=== PATIENT | female | born 2000 | race Two or more races ===

== ENCOUNTER 2024-05-05 14:18 | Observation (INO) | payer MEDICAID, SELFPAY ==
[2024-05-05] VITALS (52 sets, daily range): BP systolic 109–121; BP diastolic 61–75; PULSE 75–114; RESP 18–99; TEMP 36.4–36.9; O2SAT 82–100; BMI 39.9
[2024-05-05] MEDS: NIFEdipine 10 MG CAPSULE PO ×2 (16:18→17:18)
[2024-05-05 16:44] LABS: Collection Type, Urine Clean Catch
[2024-05-05 16:45] LABS: Basophils % (Auto) 0 % (0-2.5); Eosinophils # (Auto) 0.1 Thou/mm3 (0.0-0.5); Eosinophils % (Auto) 1 % (0-10); Hematocrit 34.5 % (36.0-46.0); Hemoglobin 11.5 g/dL (12.0-16.0); Immature Granulocytes % (Auto) 1 % (0-0); Immature Granulocytes Auto 0.05 Thou/mm3 (0.00-0.00); Lymphocytes # (Auto) 2.2 Thou/mm3 (1.0-4.8); Lymphocytes % (Auto) 22 % (10-50); Mean Corpuscular HGB Conc 33.3 g/dl (31.0-37.0); Mean Corpuscular Hemoglobin 28.8 pg (25.0-35.0); Mean Corpuscular Volume 86 fL (80-100); Monocytes # (Auto) 0.6 Thou/mm3 (0.0-0.8); Monocytes % (Auto) 6 % (0-12); Neutrophils # (Auto) 7.2 Thou/mm3 (1.8-7.7); Neutrophils % (Auto) 71 % (37-80); Nucleated Red Blood Cell % 0 /100 WBC (0); Platelet Count 275 Thou/mm3 (140-440); RDW Standard Deviation 41.7 fL (36.4-46.3); White Blood Count 10.2 Thou/mm3 (3.6-11.0)
[2024-05-05 17:07] LABS: Bacteria,Urine Rare; Bilirubin,Urine Negative (Negative); Blood,Urine 1+ (Negative); Color,Urine Lt-Yellow (Lt Yel-Yel); Glucose, Urine Negative (Negative); Ketones,Urine Negative (Negative); Leukocyte Esterase,Urine Positive (Negative); Nitrite,Urine Negative (Negative); Protein,Urine Negative (Neg - Trace); RBC,Urine 1 /hpf (0-3); Specific Gravity,Urine 1.011 (1.001-1.035); Squamous Epithelial Cell,Urine 13 /hpf (0-5); Urobilinogen,Urine Negative mg/dL (0.0-1.0); WBC,Urine 12 /hpf (0-5)
[2024-05-05 17:08] LABS: Clarity,Urine Hazy (Clear/Hazy)
== END 2024-05-05 18:42 | disposition home or self-care (01) ==
PROVIDERS: Admitting Provider Obstetrics & Gynecology; Visit Provider Obstetrics & Gynecology
DX: O26.893 Other specified pregnancy related conditions, third trimester (principal); Z3A.32 32 weeks gestation of pregnancy; R10.30 Lower abdominal pain, unspecified
CPT/HCPCS: 36415; 59025; 59899; 81001; 82731; 85025; A9270

== ENCOUNTER 2024-05-11 17:33 | Observation (INO) | payer MEDICAID, SELFPAY ==
[2024-05-11 17:33] VITALS: BP 127/78; BP 128/78; PULSE 100; RESP 100; RESP 16; TEMP 36.2; O2SAT 100
--- NOTE | 2024-05-11 18:36 | XR_ITS ---
Examination: Biophysical profile, ultrasound Date and time of exam: May 11, 2024 1852 hours INDICATIONS: Decreased movement today Technique: Multiple transabdominal sonographic images of the pelvis abdomen obtained. Attention is directed to the breathing movement, gross body movement, amniotic fluid volume and tone. Findings: Amniotic fluid index 9.7 cm Total biophysical profile is 8 of 8. breathing movement is 2. Gross body movement is 2. tone is 2. Qualitative amniotic fluid volume is 2 Impression: Biophysical profile is 8 of 8.
[2024-05-11 18:55] VITALS: BMI 39.8
[2024-05-11 19:17] VITALS: BP 103/58; PULSE 78
== END 2024-05-11 20:10 | disposition home or self-care (01) ==
PROVIDERS: Admitting Provider Obstetrics & Gynecology; Visit Provider Obstetrics & Gynecology
DX: O36.8130 Decreased fetal movements, third trimester, not applicable or unspecified (principal); Z3A.33 33 weeks gestation of pregnancy
CPT/HCPCS: 59025; 59899; 76819; G0378

== ENCOUNTER 2024-06-13 13:22 | Outpatient (CLI) | payer MEDICAID, SELFPAY ==
[2024-06-13] VITALS (12 sets, daily range): BP systolic 109; BP diastolic 63; PULSE 83–108; O2SAT 97–100
== END 2024-06-13 14:16 | disposition home or self-care (01) ==
LOC: S4S1 13:23 → S4SX 13:23
PROVIDERS: Referring Provider Specialist; Visit Provider Specialist
DX: Z36.2 Encounter for other antenatal screening follow-up (principal); Z34.03 Encounter for supervision of normal first pregnancy, third trimester; Z3A.38 38 weeks gestation of pregnancy
CPT/HCPCS: 59025

== ENCOUNTER 2024-06-16 18:26 | Observation (INO) | payer MEDICAID, SELFPAY ==
[2024-06-16] VITALS (13 sets, daily range): BP systolic 134–140; BP diastolic 85–96; PULSE 77–118; RESP 18–99; TEMP 36.5–36.9; O2SAT 98–100; BMI 40.8
== END 2024-06-16 20:00 | disposition home or self-care (01) ==
PROVIDERS: Admitting Provider Obstetrics & Gynecology; Visit Provider Obstetrics & Gynecology
DX: O26.893 Other specified pregnancy related conditions, third trimester (principal); Z3A.38 38 weeks gestation of pregnancy; R10.9 Unspecified abdominal pain
CPT/HCPCS: 59025; 59899

== ENCOUNTER 2024-06-23 16:14 | Observation (INO) | payer MEDICAID, SELFPAY ==
[2024-06-23 16:24] VITALS: BP 136/85; PULSE 90
[2024-06-23 16:31] VITALS: BP 136/85; PULSE 90; RESP 16; RESP 98; TEMP 36.6; BMI 41.7
[2024-06-23 16:32] VITALS: RESP 16; TEMP 36.6; O2SAT 98
== END 2024-06-23 17:15 | disposition home or self-care (01) ==
PROVIDERS: Admitting Provider Specialist; Visit Provider Specialist
DX: Z34.03 Encounter for supervision of normal first pregnancy, third trimester (principal); Z3A.39 39 weeks gestation of pregnancy
CPT/HCPCS: 59025; 59899; G0378

== ENCOUNTER 2024-06-24 13:30 | Inpatient (IN) | payer MEDICAID, SELFPAY ==
[2024-06-24] VITALS (18 sets, daily range): BP systolic 115–137; BP diastolic 65–98; PULSE 86–115; RESP 17–98; TEMP 36.7–37.3; BMI 41.7; BMI 41.8
[2024-06-24 14:10] LABS: ROM Kit Lot # 57807112; ROM Swab Mixed By: GARCN1; Swb Mxed in Solvent 1 min? Yes
[2024-06-24 14:11] LABS: Rupture of Fetal Membranes Positive (Negative)
--- NOTE | 2024-06-24 14:33 | XR_ITS ---
Examination: age limited TECHNIQUE: Limited transabdominal sonographic images pelvis Date and time: June 24, 2024 1530 hours INDICATIONS: Ruptured membranes today, unknown estimated weight and unknown presentation. FINDINGS: Viable intrauterine gestation cephalic presentation Cardiac motion 166 bpm Estimated weight 3448 g Amniotic fluid index is 6.6 cm IMPRESSION: Viable intrauterine gestation cephalic presentation Estimated weight 3448 g
[2024-06-24 15:45] LABS: Basophils % (Auto) 0 % (0-2.5); Eosinophils # (Auto) 0.1 Thou/mm3 (0.0-0.5); Eosinophils % (Auto) 1 % (0-10); Hematocrit 33.5 % (36.0-46.0); Hemoglobin 11.6 g/dL (12.0-16.0); Immature Granulocytes % (Auto) 0 % (0-0); Immature Granulocytes Auto 0.04 Thou/mm3 (0.00-0.00); Lymphocytes # (Auto) 1.8 Thou/mm3 (1.0-4.8); Lymphocytes % (Auto) 18 % (10-50); Mean Corpuscular HGB Conc 34.6 g/dl (31.0-37.0); Mean Corpuscular Hemoglobin 28.6 pg (25.0-35.0); Mean Corpuscular Volume 83 fL (80-100); Monocytes # (Auto) 0.6 Thou/mm3 (0.0-0.8); Monocytes % (Auto) 6 % (0-12); Neutrophils # (Auto) 7.3 Thou/mm3 (1.8-7.7); Neutrophils % (Auto) 74 % (37-80); Nucleated Red Blood Cell % 0 /100 WBC (0); Platelet Count 245 Thou/mm3 (140-440); RDW Standard Deviation 43.5 fL (36.4-46.3); Red Blood Count 4.06 Miln/mm3 (4.00-5.20); White Blood Count 9.9 Thou/mm3 (3.6-11.0)
[2024-06-24 16:19] LABS: Syphilis Nonreactive (Nonreactive)
--- NOTE | 2024-06-24 17:50 | PD.LDHP ---
Documentation for date of: 06/24/24 OB Labor/Induct. HPI History of Present Illness Chief complaint: Ruptured membranes, 39-4/7 weeks . : 1 Para: 0 Term pregnancies: 0 pregnancies: 0 Living children: 0 History of Abortions: Spontaneous and Elective: 0 History of Vaginal deliveries: 0 History of sections: No History of : No Date of last menstrual period: 09/30/23 [place]: 06/27/24 Gestational Age (weeks): 39 Gestational Age (days): 4 Gestational age based on last menstrual period: 38 History of present illness: The patient is a 23-year-old G1, P0 at 39 4/7 weeks with an EDC of 06/27/2024 with all care uncomplicated with Dr. Blake at [facility] who presented with ruptured membranes to triage. She ruptured her membranes at noon on 06/24/2024. She was in triage approximately 1400 today. She was admitted at 1430. Cervix on presentation was 1 cm dilated group B strep is negative History of Present Dating criteria: LMP confirmed by 1st trimester US Adequate Care: Yes Ultrasounds: normal mid trimester US Obstetrical complications: none Medical complications: none Labs Maternal Blood Type: A Pos Labs: Negative: RPR, Hepatitis B, Rubella Titre (Rubella nonimmune), HIV, Chlamydia, Gonorrhea and Group Beta Strep and Unknown: Herpes Type 1, Herpes Type 2 and Covid-19 Past Medical History Surgical History SURGICAL: Negative Section Meds Home Medications and Allergies Home Medications ?Medication ?Instructions ?Recorded ?Confirmed ?Type vits no.130-ferrous fum 1 tab PO .Q DAY 05/05/24 06/23/24 History 27 mg iron-folic acid 800 mcg tablet ( Vitamin) aspirin 81 mg tablet,delayed 81 mg PO QDAY 06/23/24 06/23/24 History release Allergies Allergy/AdvReac Type Severity Reaction Status Date / Time No Known Allergies Allergy Verified 06/23/24 16:37 OB Exam Physical Exam Vital signs: Temp Pulse Resp BP 98.7 F 93 18 120/72 06/24/24 15:43 06/24/24 17:02 06/24/24 15:43 06/24/24 17:02 Detailed Labor and Delivery Exam Effacement (%): Thick Cervix position: posterior station: -2 Consistency: firm Presentation: Vertex Membranes: ruptured Amniotic fluid: clear Baseline heart rate: 140 monitor accelerations: 15x15 monitor decelerations: None terminal system operator variability: Moderate (11-25) OB Results Labs 06/24/24 15:15 Labs: Short CBC 06/24/24 Range/Units 15:15 WBC 9.9 (3.6-11.0) Thou/mm3 Hgb 11.6 L (12.0-16.0) g/dL Hct 33.5 L (36.0-46.0) % Plt Count 245 (140-440) Thou/mm3 OB Assessment & Plan Assessment and Plan (1) Full-term premature rupture of membranes: Status: Acute Assessment and plan: Admit patient. Order oral Cytotec for induction. EFW 7 and half pounds by ultrasound today. BRITT 6.6 vertex presentation (1) Full-term premature rupture of membranes Qualifiers: PROM onset of labor timing: onset of labor within 24 hours of rupture Qualified Code(s): O42.02 - Full-term premature rupture of membranes, onset of labor within 24 hours of rupture
[2024-06-24] MEDS: MISOPROSTOL 50 mCg TABLET PO (18:27)
[2024-06-24 21:33] LABS: Amphetamine/Metham Scrn,Ur OB Negative (Negative); Benzoylecgonine Screen, Ur OB Negative (Negative); Opiate Screen,Urine OB Negative (Negative); THC Screen,Urine OB Negative (Negative)
--- NOTE | 2024-06-24 22:47 | PC.NURSE ---
2243 RN at bedside position change semi fowlers, fhm adjusted
[2024-06-25] VITALS (98 sets, daily range): BP systolic 93–160; BP diastolic 51–94; PULSE 65–147; RESP 12–19; TEMP 36.4–37; O2SAT 88–100
--- NOTE | 2024-06-25 00:10 | PC.NURSE ---
0003 RN at bedside repositioned patient right lateral runners, m readjusted
[2024-06-25] MEDS: MISOPROSTOL 50 mCg TABLET PO ×2 (00:34→04:40)
--- NOTE | 2024-06-25 00:41 | PC.NURSE ---
0036 Rn at bedside position change left lateral, fhm adjusted
[2024-06-25] MEDS: RINGERS LACTATED 1000 ML 1,000 ML 100 ML IV ×3 (02:20→12:43)
[2024-06-25] MEDS: fentaNYL CIT INJ 50 mCg/ML AMP 2ML 100 MCG IV ×2 (03:37→05:34)
--- NOTE | 2024-06-25 05:17 | PC.NURSE ---
0507 RN at bedside assisting patient up to bathroom
--- NOTE | 2024-06-25 06:45 | PC.NURSE ---
[address] [facility] readjusted patient positioned to left lateral position, patient continues to breath through contractions, refuses epidural at this time
--- NOTE | 2024-06-25 08:11 | ESPR_ITS ---
Documentation for date of: 06/25/24 OB Labor Progress Note Pelvic Exam Dilation (cm): 3.5 Effacement (%): 60 station: -2 Contractions Monitor mode: Internal Contraction frequency: 1-4.5 Contraction pattern: Coupling Contraction intensity: Moderate Status status: Category ll Assessment and Plan Comments: 83-year-old 1 para 0 at 39 weeks and 5 days who received care at [facility]. Patient presented with rupture of membranes. She is currently being induced with misoprostol. Received signout from overnight on-call physician. Category 1 heart rate tracing. Continue current plan.
--- NOTE | 2024-06-25 08:25 | PC.NURSE ---
Ollie EASLEY at nurse's station reviewing tracing, aware pt to receive 4th Cytotec at 0840. Aware of minimal variability and no accels for about an hour
[2024-06-25] MEDS: FAMOTIDINE INJ 10 MG/ML VIAL 2 ML 20 MG IV (12:43)
[2024-06-25] MEDS: ceFAZolin/D5W 2 GM IV 2 GM/100 ML BAG IV (12:43)
[2024-06-25] MEDS: METOCLOPRAMIDE INJ 5 MG/ML VIAL 2 ML 10 MG IVP (12:43)
--- NOTE | 2024-06-25 12:43 | ESPR_ITS ---
Documentation for date of: 06/25/24 OB Labor Progress Note Pelvic Exam Dilation (cm): 5 Effacement (%): 90 station: 0 Contractions Monitor mode: Internal Contraction frequency: 2-5 Contraction pattern: Coupling Contraction intensity: Moderate Status status: Category ll Assessment and Plan Comments: Patient is being monitored for minimal variability and recurrent late deceler ations which intermittently resolved to category 1. Internal scalp electrode was placed but it was expanded. No change in cervical exam since 7 AM. Patient was offered the option to proceed with delivery, and the risks benefits and alternatives were discussed with her. Advantages and disadvantages of either option were reviewed. After being given the opportunity to ask questions she elected to proceed with delivery. All the questions were asked and answered to their apparent satisfaction
--- NOTE | 2024-06-25 13:46 | PD.GYNPROC ---
Operative Note - SERVICE DESK ASSOCIATE Procedure Date of procedure: 06/25/24 Procedure Performed: Primary low-transverse section by Pfannenstiel incision Indication: Category 2 heart rate tracing trending to category 3 Failure to progress in latent phase of labor Anesthesia type: Epidural Procedure description: Informed consent was obtained and the patient was taken to the operating room.? Identity was confirmed by double identifiers and she was placed on the operating table.? Spinal anesthesia was administered and she was positioned in the supine position.? The abdomen and perineum were prepped in the usual sterile fashion and a Yeung catheter was placed to continuous drainage.? Sterile drapes were applied.? The incision site was tested for adequacy of anesthesia.? A Pfannenstiel skin incision was made with a scalpel and carried to the subcutaneous fat up to the rectus fascia.? The rectus fascia was incised on either side of the midline and the incisions were extended bilaterally.? The fascia was gently dissected off the ventral surface of the rectus muscle both superiorly and inferiorly.? The rectus bellies were gently in the midline and the peritoneum was identified and entered bluntly using the surgeon's finger.? The peritoneal opening was now stretched to create an adequate opening for access to the uterus.? Jensen O-ring retractor was placed for adequate visualization.? The anterior surface of the uterus was palpated.? The bladder reflection was identified and a Nirali Grullon low transverse uterine incision was made in the lower uterine segment taking care to avoid the bladder.? Uterine entry was accomplished bluntly and the opening was stretched to create adequate room.? The amniotic membranes were now ruptured and clear amniotic fluid was released.? The fetus was noted to be in the vertex position.? The head was gently elevated out of the maternal pelvis and single loop of nuchal cord was found around the neck.? The cord was released and the rest of the shoulders and body were delivered by gentle fundal pressure.? Umbilical cord was doubly clamped, divided and the infant was handed over to the waiting team.? Cord gas samples were obtained.? The placenta was delivered by gentle traction on the umbilical cord.? The interior of the uterus was now thoroughly cleaned of all blood and debris and membranes.? The hysterotomy angles were grasped by a pair of Allis clamps and the hysterotomy was closed using 1 Monocryl suture in 2 layers.? The first layer was used to approximate the muscle in a running locked fashion, the second layer was used to approximate the thickness of the myometrium?and uterine serosa in an imbricated manner.? Once the repair was completed the hysterotomy was inspected and noted to be adequately hemostatic.?? The hysterotomy was once again inspected and hemostasis was noted to be satisfactory.? The Jensen retractor was now removed.? The peritoneal edges were re approximated.? The rectus muscles were re approximated.? The rectus fascia was now repaired using 0 Vicryl suture in a running fashion.? The subcutaneous layer was now copiously irrigated using warm normal saline.? All bleeding points were cauterized using the Bovie.? The subcutaneous fat was closed using 3-0 Vicryl.? The skin was closed using 4-0 Monocryl in a subcuticular fashion.? The skin was cleaned and a sterile dressing was applied.? The patient was now undraped, the abdomen and back were thoroughly cleaned and she was transferred to the recovery room in a stable and awake condition.? The patient tolerated the entire procedure well.? No complications were encountered.? All instrument, sponge and lap counts were correct x2. Specimen: none Estimated blood loss (ml): 750 Complications: none Diagnosis Discharge Diagnosis (1) delivery delivered: Status: Acute (2) Prolonged rupture of membranes: Status: Acute (3) Full-term premature rupture of membranes: Status: Acute Problem List Completed Was Problem List Reviewed/Reconciled?: Yes (3) Full-term premature rupture of membranes Qualifiers: PROM onset of labor timing: onset of labor within 24 hours of rupture Qualified Code(s): O42.02 - Full-term premature rupture of membranes, onset of labor within 24 hours of rupture
--- NOTE | 2024-06-25 13:49 | OBDSUM_ITS ---
Data (Reyna) Data Hx Section: No : 1 Term: 0 : 0 Livin Abortions: Spontaneous & Theraputic: 0 Delivery Data (Reyna) Labor Data Initiation of labor: Induction Induction/Augmentation Agent: Cytotec-PO ROM date: 06/24/24 ROM time: 12:00 Amniotic membrane rupture type: Spontaneous Amniotic fluid description: Clear Delivery Data Onset of labor date: 06/25/24 Onset of labor time: 11:54 Complete dilation date: 06/25/24 [place] delivery date: 06/25/24 delivery time: 13:17 Placenta delivery date: 06/25/24 Placenta delivery time: 13:18 Delivered by: ANDREY Delivery nurse: Corie Barrientos nurse: [email or web address] AND [id number] Head Lineman at delivery: No Support person(s) at delivery: SISTER Other staff at delivery: MATTJPiter [place] Data (Reyna) [place] Data order: 1 [place]'s gender: Female Identification band number: [id number]
[2024-06-25] MEDS: SODIUM CHLORIDE 0.9% 1000 ML 1,000 ML 999 ML IV (14:25)
[2024-06-25] MEDS: KETOROLAC INJ 30 MG/ML VIAL IVP (14:27)
[2024-06-25] MEDS: ONDANSETRON INJ 2 MG/ML INJ 2 ML 4 MG IV ×2 (14:27→19:58)
[2024-06-25] MEDS: OXYTOCIN in NS 20 units 20 UNIT/1,000 ML BAG 125 UNIT IV (15:12)
[2024-06-25] MEDS: SODIUM CHLORIDE 0.9% 1000 ML 1,000 ML 500 ML IV (22:15)
[2024-06-26] MEDS: KETOROLAC INJ 30 MG/ML VIAL IVP ×2 (00:41→07:29)
[2024-06-26 01:30] VITALS: BP 129/76; PULSE 96; RESP 18; TEMP 36.6; O2SAT 98
[2024-06-26] MEDS: SODIUM CHLORIDE 0.9% 1000 ML 1,000 ML IV (02:54)
[2024-06-26 05:03] LABS: Basophils % (Auto) 0 % (0-2.5); Eosinophils # (Auto) 0.1 Thou/mm3 (0.0-0.5); Eosinophils % (Auto) 1 % (0-10); Hematocrit 28.6 % (36.0-46.0); Hemoglobin 9.7 g/dL (12.0-16.0); Immature Granulocytes % (Auto) 0 % (0-0); Immature Granulocytes Auto 0.04 Thou/mm3 (0.00-0.00); Lymphocytes # (Auto) 2.1 Thou/mm3 (1.0-4.8); Lymphocytes % (Auto) 16 % (10-50); Mean Corpuscular HGB Conc 33.9 g/dl (31.0-37.0); Mean Corpuscular Hemoglobin 28.9 pg (25.0-35.0); Mean Corpuscular Volume 85 fL (80-100); Monocytes # (Auto) 0.6 Thou/mm3 (0.0-0.8); Monocytes % (Auto) 4 % (0-12); Neutrophils # (Auto) 9.9 Thou/mm3 (1.8-7.7); Neutrophils % (Auto) 78 % (37-80); Nucleated Red Blood Cell % 0 /100 WBC (0); Platelet Count 199 Thou/mm3 (140-440); RDW Standard Deviation 46.9 fL (36.4-46.3); Red Blood Count 3.36 Miln/mm3 (4.00-5.20); White Blood Count 12.7 Thou/mm3 (3.6-11.0)
[2024-06-26 05:32] VITALS: BP 105/71; PULSE 92; RESP 16; TEMP 36.8; O2SAT 98
[2024-06-26 05:34] LABS: Alanine Aminotransferase 8 U/L (10-49); Albumin, Serum 2.8 gm/dL (3.5-5.0); Albumin/Globulin Ratio 1.4 (1.2-2.2); Alkaline Phosphatase 114 U/L (46-116); Anion Gap 6 (7-16); Aspartate Amino Transferase 17 U/L (0-34); BUN/Creatinine Ratio 14 Ratio (12-20); Bilirubin,Total 0.5 mg/dL (0.3-1.2); Blood Urea Nitrogen 7 mg/dL (9-23); Calcium 7.6 mg/dL (8.3-10.6); Calcium (Corrected) 8.6 mg/dL (8.5-10.1); Carbon Dioxide 22.7 mMol/L (20.0-31.0); Chloride 111 mMol/L (98-107); Creatinine (Component) 0.5 mg/dL (0.6-1.3); Estimated Creatinine Clearance 194.4 mL/min (>60); Glucose 90 mg/dL (74-106); Osmolality,Calculated 277 (275-295); Potassium 3.5 mMol/L (3.4-5.1); Sodium 140 mMol/L (136-145); Total Protein 4.8 gm/dL (5.7-8.2); eGFR > 60 See Note
[2024-06-26] MEDS: SIMETHICONE 80 MG CHEW PO ×2 (07:29→16:57)
[2024-06-26 08:00] VITALS: BP 100/69; PULSE 81; RESP 19; TEMP 36.8; O2SAT 96
[2024-06-26] MEDS: DOCUSATE SOD 100 MG CAPSULE PO (08:42)
--- NOTE | 2024-06-26 09:03 | PD.LDPPPRG ---
Subjective Subjective Interval history: Is a 23-year-old G1 now P1 001 status post primary for intolerance to labor persistent category [address] Askew at approximately 2000 on 06/25/2024. Patient is resting comfortably in bed. She has a Yeung catheter in place. The father the baby is at bedside as is the baby. Patient states her pain is controlled she denies heavy vaginal bleeding. No fevers. Exam Vital Signs Temp Pulse Resp BP Pulse Ox O2 Del Method 98.3 F 92 16 105/71 98 Room Air 06/26/24 05:32 06/26/24 05:32 06/26/24 05:32 06/26/24 05:32 06/26/24 05:32 06/26/24 05:32 Narrative Exam Abdomen soft distended, difficult to feel fundus. Dressing clean dry and intact. Extremities show no significant edema or erythema. Objective Labs 06/26/24 04:35 06/26/24 04:35 Labs: Laboratory Results - last 24 hr 06/26/24 04:35 WBC 12.7 H RBC 3.36 L Hgb 9.7 L Hct 28.6 L MCV 85 MCH 28.9 MCHC 33.9 RDW Std Deviation 46.9 H Plt Count 199 D Neut % (Auto) 78 Lymph % (Auto) 16 [place] % (Auto) 4 Eos % (Auto) 1 Baso % (Auto) 0 Neut # (Auto) 9.9 H Lymph # (Auto) 2.1 [place] # (Auto) 0.6 Eos # (Auto) 0.1 Baso # (Auto) 0.0 Immature Gran # (Auto) 0.04 H Absolute Nucleated RBC 0.00 Immature Gran % 0 Nucleated RBC % 0 Sodium 140 Potassium 3.5 Chloride 111 H Carbon Dioxide 22.7 Anion Gap 6 L BUN 7 L Creatinine 0.5 L Estim Creat Clear Calc 194.4 eGFR > 60 BUN/Creatinine Ratio 14 Glucose 90 Calculated Osmolality 277 Calcium 7.6 L Corrected Calcium 8.6 Total Bilirubin 0.5 AST 17 ALT 8 L Alkaline Phosphatase 114 Total Protein 4.8 L Albumin 2.8 L Globulin 2.0 L Albumin/Globulin Ratio 1.4 Assessment & Plan Problem List (1) delivery delivered: Status: Acute Assessment and plan: Postoperative day #1 orders given. Patient to have Yeung removed. Ambulate in the hallways. Encouraged ambulation as much as possible in order to pass more flatus as abdomen is distended. Patient is tolerating a general diet at this point. Pain medications written as needed. Patient will continue to work on breast-feeding. Probable discharge tomorrow. (2) Full-term premature rupture of membranes: Status: Acute Assessment and plan: No fevers chills. Monitor for any postop fevers. Time Spent With Patient Time: Total time spent is greater than 50% in coordination of care (as documented) at patient's floor/unit and/or counseling patient: Time with patient: less than 15 minutes
[2024-06-26 12:00] VITALS: BP 123/89; PULSE 90; RESP 16; TEMP 36.9; O2SAT 98
--- NOTE | 2024-06-26 15:03 | PC.SS ---
VIDEO GAME ANIMATOR met with pt at bedside due to pt being late to care at 27 weeks. Pt stated that she was late to care because she moved from [place] to [facility] and she had transferred her insurance to [facility] but when she was trying to see her doctor here the transfer of insurance was not finalized so then she had to go back to [place] and try and get an appt which was difficult, pt stated she had to drive to [place] until her insurance was finalized for [facility] with Dr. Rae.
[2024-06-26 16:30] VITALS: BP 127/86; PULSE 94; RESP 16; TEMP 36.8; O2SAT 95
[2024-06-26] MEDS: IBUPROFEN TAB 400 MG TABLET 800 MG PO (16:57)
[2024-06-26 20:20] VITALS: BP 117/80; PULSE 88; RESP 19; TEMP 36.4; O2SAT 97
[2024-06-26] MEDS: ACETAMINOPHEN 325 MG TABLET 650 MG PO (22:52)
[2024-06-26] MEDS: DiphenhydrAMINE 25 MG CAPSULE PO (23:20)
[2024-06-27 02:01] VITALS: TEMP 36.8
[2024-06-27 04:00] VITALS: BP 114/76; PULSE 97; RESP 18; TEMP 36.8; O2SAT 98
[2024-06-27 08:25] VITALS: BP 128/89; PULSE 100; RESP 16; TEMP 37.2; O2SAT 97
[2024-06-27] MEDS: DOCUSATE SOD 100 MG CAPSULE PO (08:25)
--- NOTE | 2024-06-27 11:07 | ESPR_ITS ---
RE: ELISABETH ALCANTARA : 2000 DATE OF SERVICE: 06/27/2024 S: Postop day #2, the patient denies any problem or complaints. She is voiding. She is ambulating. She is tolerated regular diet. She is passing flatus. She denies any excessive vaginal bleeding. She denies any dizziness or lightheadedness. She denies any chest pain, palpitations, shortness of breath, or lower extremity pain. O: Vital Signs: Blood pressure 114/76, heart rate 97, respirations 18, temperature 98.2, and pulse oximetry 98% on room air. Lungs: Clear to auscultation bilaterally. Heart: Regular rate and rhythm. Abdomen: Nondistended. Incision is clear and intact. Fundus is firm. Extremities: Nontender. LABORATORY DATA: Hemoglobin pre-delivery is 11.6 and post-delivery is 9.7. A: Postoperative day #2, status post delivery. P: Discharge home. Discharge instructions given. Follow up in the office in 1 week. DT: 09:07:58 TT: 11:06:00 Ref: [id number] - TID: [id number]
== END 2024-06-27 14:30 | disposition home or self-care (01) | DRG 540 ==
LOC: S4SX 06-25 06:51 → S4NX 06-25 13:22
PROVIDERS: Obstetrics & Gynecology; Admitting Provider Obstetrics & Gynecology; Visit Provider Specialist
PROC: 10D00Z1 Extraction of Products of Conception, Low, Open Approach (ICD-10-PCS; CPT 59514; principal; 2024-06-25 13:00)
DX: O42.02 Full-term premature rupture of membranes, onset of labor within 24 hours of rupture (principal); Z3A.39 39 weeks gestation of pregnancy; O69.81X0 Labor and delivery complicated by cord around neck, without compression, not applicable or unspecified; O62.2 Other uterine inertia; Z37.0 Single live birth; O76 Abnormality in fetal heart rate and rhythm complicating labor and delivery
CPT/HCPCS: 36415; 59025; 59409; 76815; 80053; 80307; 84112; 85025; 86780; 86850; 86900; 86901; 94762; A4649; J0689; J1885; J2250; J2274; J2405; J2590; J2765; J2795; J3010; J3490; J7030; J7120; A9270; J2270

== ENCOUNTER 2024-12-07 11:45 | Emergency (ER) | payer MEDICAID, SELFPAY ==
[2024-12-07 12:27] VITALS: BP 139/96; PULSE 101; RESP 18; TEMP 36.8; O2SAT 96; BMI 38.2
--- NOTE | 2024-12-07 12:31 | EDNOTE_ITS ---
<Statement entered by Tiffanie Pennington MD - 12/10/24 17:59> As co-signing physician, I was present and available for consult prn. I concur with the plan and care as documented by the midlevel provider. Nausea/Vomit./Diarrhea-RME/HPI General Chief complaint: Nausea/Vomiting/Diarrhea Stated complaint: Vomiting, diarrhea, weak, dizziness X 1 hr Time Seen by Provider: 12/07/24 12:30 Arrival date/time: 12/07/24 11:45 24-year-old female presents to the emergency department today for complaints of nausea vomiting diarrhea ongoing x 1 hour patient reports no fever no back pain no dysuria patient reports no chance of Limitations: no limitations Related Data Home Medications ?Medication ?Instructions ?Recorded ?Confirmed vits no.130-ferrous fum 1 tab PO .Q DAY 05/0506/25/24 27 mg iron-folic acid 800 mcg tablet ( Vitamin) Previous Rx's ?Medication ?Instructions ?Recorded loperamide 2 mg capsule (Imodium 2 mg PO Q6H PRN loose stool #14 12/07/24 A-D) caps ondansetron 4 mg disintegrating 4 mg PO Q8H PRN nausea and 12/07/24 tablet vomiting #10 tabs Allergies Allergy/AdvReac Type Severity Reaction Status Date / Time No Known Allergies Allergy Verified 12/07/24 11:49 Review of Systems Review of Systems Systems Reviewed: All systems reviewed, normal except as documented Constitutional Constitutional: Reports system reviewed and no additional complaints, except as documented, Denies fever(s) and Denies headache(s) Eyes Eyes: Reports system reviewed and no additional complaints, except as documented and Denies blurry vision ENT Ears, Nose, Mouth, and Throat: Reports system reviewed and no additional complaints, except as documented, Denies headache(s), Denies nasal congestion and Denies nasal discharge Cardiovascular Cardiovascular: Reports system reviewed and no additional complaints, except as documented, Denies chest pain and Denies dyspnea Respiratory Respiratory: Reports system reviewed and no additional complaints, except as documented, Denies chest congestion, Denies cough and Denies dyspnea Gastrointestinal Gastrointestinal: Reports system reviewed and no additional complaints, except as documented, Denies abdominal pain, Reports diarrhea, Reports nausea and Reports vomiting Integumentary/Breasts Skin/Breast: Reports system reviewed and no additional complaints, except as documented and Denies rash Neurologic Neurologic: Reports system reviewed and no additional complaints, except as documented, Reports as per HPI and Denies headache(s) Past Medical History Past Medical History NEUROLOGIC: Positive Neurological Disorders; Negative Seizures or Spina Bifida CARDIAC: Negative Cardiac Disorders, Congestive Heart Failure, Edema, Hypertension, Hypotension or Varicose Veins RESPIRATORY: Negative Chronic Obstructive Pulmonary Disease (COPD), Asthma, Bronchitis, Pneumonia, Pulmonary Fibrosis, Tuberculosis, Pulmonary Embolism or Sleep Apnea GASTROINTESTINAL: Positive Gastrointestinal Disorders (H.Pylori 2021) and O besity; Negative Hepatitis, Hiatal Hernia, Hemorrhoids or Gastroesophageal Reflux Disease GENITOURINARY: Negative Genitourinary Disorders, Renal Disease or Kidney Stones REPRODUCTIVE: Negative Endometriosis, Genital Herpes, Gonorrhea, Pelvic Inflammatory Disease, Previous Pregnancies, Syphilis or Uterine Prolapse MUSCULOSKELETAL: Negative Musculoskeletal Disorders or Fractures ENDOCRINE: Negative Endocrine Disorders, Diabetes Mellitus Type 1, Diabetes Mellitus Type 2, Hypoglycemia or Hypothyroidism HEMATOLOGIC: Negative Blood Disorders, Anemia or Clotting Problems PSYCHO/SOCIAL: Negative Psychiatric Problems, Schizophrenia, Recreational Drug Use, Bipolar Disorder, Depression, Anxiety, Behavior Problems, Self-Mutilation, Attention Deficit Disorder, Attention Deficit Hyperactivity Disorder, Depression, Post Traumatic Stress Disorder or Eating Disorder OTHER HISTORY: Negative Hospitalization, Autoimmune Disease, Down Syndrome, Autism, Developmental Delay, Shingles, Falls, Blood Transfusions, Blood Transfusion Reaction, Anesthesia Reactions, Organ Transplant, MRSA, VRSA, Vancomycin-Resistant Enterococci, Human Immunodeficiency Virus (HIV), Chicken Pox, Measles, Mumps, Rubella (Emirati Measles), Pertussis, Clostridium Difficile or Cancer Family History FAMILY HISTORY: Positive Family Cardiac Disorders (Paternal HTN); Negative Family Psychiatric Problems, Family Cancer, Family Surgery or Family Anesthesia Reaction Surgical History SURGICAL: Negative Open Heart Surgery, Endocrine Surgery, Ear Surgery, Nephrectomy, Joint Replacement, Neurologic Surgery, Section or Organ Transplant Social History SMOKING STATUS: Never smoker ED Exam General Limitations: Present no limitations General appearance: Present alert and in no apparent distress Head Head exam: Present atraumatic, normocephalic and normal inspection Eye Eye exam: Present normal appearance, PERRL and EOMI ENT ENT exam: Present normal exam, normal oropharynx and mucous membranes moist Neck Neck exam: Present normal inspection, full ROM and trachea midline Chest Chest inspection: Present normal inspection and symmetric chest wall rise Respiratory Respiratory exam: Present normal lung sounds bilaterally Cardiovascular Cardiovascular exam: Present regular rate, normal rhythm and normal heart sounds Abdominal Exam Abdominal exam: Present soft and normal bowel sounds; Absent distention, tenderness, guarding, rebound, rigidity, Ragland's sign or tenderness at McBurney's Point Abdominal tenderness: Absent RUQ or RLQ Extremities Exam Extremities exam: Present normal inspection and full ROM Back Exam Back exam: Present normal inspection and full ROM Neurological Exam Neurological exam: Present alert, oriented X3 and CN II-XII intact Psychiatric Psychiatric exam: Present normal affect and normal mood Skin Skin exam: Present warm, dry, intact and normal color Course Quality Measures none Orders Category Date Time Status Loperamide [Imodium] Med 12/07/24 12:31 Discontinued 4 mg PO X1 ONE Ondansetron Odt [Zofran Odt] Med 12/07/24 12:31 Discontinued 8 mg PO X1 ONE Vital Signs Vital signs: Vital Signs Temperature 98.3 F 12/07/24 12:27 Pulse Rate 101 H 12/07/24 12:27 Respiratory Rate 18 12/07/24 12:27 Blood Pressure 139/96 H 12/07/24 12:27 Pulse Oximetry (%) 96 12/07/24 12:27 Oxygen Delivery Method Room Air 12/07/24 12:27 O2 saturation 96% on room air within normal limits Nausea/Vomiting/Diarrhea MDM Narrative MDM Narrative:: 24-year-old female presents to the emergency department today for complaints of nausea vomiting diarrhea ongoing x 1 hour patient reports no fever no back pain no dysuria patient reports no chance of On exam patient well-appearing patient does not appear look toxic no acute distress Symptoms highly consistent with food poisoning versus viral illness Patient be treated symptomatically at this time be discharged with medication Explained to the patient this is very early on in the illness should symptoms persist or worsens he is instructed return for reevaluation patient states understanding Patient data External records reviewed:: [facility] previous records Clinical information provided by:: patient Social determinants that could affect healthcare access:: none Patient has the following chronic illnesses:: She history How is presenting disease/condition affected by chronic disease/condition?: uneffected by Evaluation data The following diagnostics were reviewed and interpreted by me:: other (specify) Lab and/or radiology exams considered but not ordered:: Considered not ordered Interpretation Summary: N/A Medications / Prescriptions Medications / Prescriptions considered but not ordered:: Given Medication administrations:: Medication Administration History Discontinued Medications Loperamide HCl (Loperamide 2 Mg Capsule) 4 mg PO X1 ONE Stop: 12/07/24 12:32 Last Admin: 12/07/24 13:13 Dose: Not Given Documented By: Non-Admin Reason: Not In Room Ondansetron HCl (Ondansetron Odt 4 Mg Tabrap) 8 mg PO X1 ONE; Protocol Stop: 12/07/24 12:32 Last Admin: 12/07/24 13:13 Dose: Not Given Documented By: Non-Admin Reason: Not In Room Given Consultations Consultation(s) initiated? (list below): No Diagnosis Nausea Differential Diagnosis: traveler's diarrhea, food poisoning and gastroenteritis Most likely diagnosis given after review of the tests above:: Gastroenteritis Admission Indicated Admission indicated?: not indicated Admission Request Was there a request for admission?: No Disposition Plan Disposition Plan: Discharge Discharge Attestation Discharge Attestation: The patient and all family members were given an opportunity to ask questions and understood the discharge instructions. Discharge instructions specifically effects, indications for sooner follow up or return to the emergency department, and the expected course of current diagnosis. Patient condition: Stable Discharge Plan Plan Patient Disposition: Elopement Discharge Disposition comment: Stable Prescriptions/Referrals Prescriptions/Med Rec: New loperamide [Imodium A-D] 2 mg capsule 2 mg PO Q6H PRN (Reason: loose stool) Qty: 14 0RF ondansetron 4 mg tablet,disintegrating 4 mg PO Q8H PRN (Reason: nausea and vomiting) Qty: 10 0RF No Action Vitamin 27 mg iron- 800 mcg tablet 1 tab PO .Q DAY Patient Comments: take 1 tablet by mouth once daily Problem List Clinical Impression: Nausea vomiting and diarrhea Patient/Caregiver Discharge Instructions Education Materials: ED Vomiting (Adult) Additional Instructions: Please follow up with your primary care doctor in the next 24-48hrs for any worsening symptoms return here immediately Print Language: Kyrgyz JAGJIT/KERRI Supervising Physician JAGIJT/KERRI Supervising Physician: Dr. epnnington
== END 2024-12-07 13:14 | disposition left against medical advice (07) ==
LOC: SERX 12:57
PROVIDERS: Emergency Provider Nurse Practitioner Primary Care; PCP Family Medicine
DX: R19.7 Diarrhea, unspecified (principal); R11.2 Nausea with vomiting, unspecified
CPT/HCPCS: 99281